=== PATIENT | female | born 2000 | race Caucasian/White ===

== ENCOUNTER 2023-10-09 08:00 | Outpatient (CLI) | payer OTHER ==
[2023-10-09 22:38] LABS: CHLAMYDIA TRACHOMATIS DNA NEGATIVE (NEGATIVE); NEISSERIA GONORRHOEAE DNA NEGATIVE (NEGATIVE)
[2023-10-09 23:37] LABS: BACTERIAL VAGINOSIS DNA NEGATIVE (NEGATIVE); CANDIDA KRUSEI DNA NEGATIVE (NEGATIVE); TRICHOMONAS VAGINALIS DNA NEGATIVE (NEGATIVE)
[2023-10-09 23:38] LABS: CANDIDA GLABRATA DNA NEGATIVE (NEGATIVE); CANDIDA GROUP DNA NEGATIVE (NEGATIVE)
== END 2023-10-09 23:59 | disposition home or self-care (01) ==
LOC: LAB.N 08:00
PROVIDERS: ATTEND Physician Assistant Medical
DX: N89.8 Other specified noninflammatory disorders of vagina (principal)
CPT/HCPCS: 81514; 87255; 87491; 87529; 87591; 87661

== ENCOUNTER 2023-10-22 15:35 | Emergency (ER) | payer OTHER ==
--- NOTE | 2023-10-22 16:09 | ED Physician Documentation ---
PD HPI CHEST PAIN - Stated complaint Stated Complaint: CP - Chief complaint Chief Complaint: Cardiac - History obtained from History obtained from: Patient - History of Present Illness Timing - onset: Today (she has been feeling surges/beats in her chest periodically this morning into afternoon. Initially 2-3 per minute but now about every 5-10 minutes or so. Has had feeling of lightheaded and some dyspnea, mild nauseea for 2-3 days. Does not feeling lightheaded with the palpitations per se.) Timing - details: Abrupt onset (palpitations just this morning. Had feeling of lightheaded at times undulating over past 2-3 days.) Quality: Other (suger/thump feeling in chest periodically, otherwise feeling okay.) Associated symptoms: Palpitations Recently seen: Not recently seen (was to get refill of her Wellbutrin but it was not going through so has been without it for a week and was attributing lig htheaded, nausea feeling to that.) Review of Systems Respiratory: denies: Dyspnea (denies exertional dyspnea, chest pain, near syncope nor palpitations with exercise. She does work out regularly.) GI: denies: Vomiting, Diarrhea Neurologic: denies: Near syncope, Syncope PD PAST MEDICAL HISTORY - Past Medical History Past Medical History: Yes Cardiovascular: None Respiratory: None Neuro: None Endocrine/Autoimmune: None GI: None WALL AND FLOOR TILER: None : None HEENT: None Psych: Depression, Anxiety Musculoskeletal: None Derm: None - Past Surgical History Past Surgical History: Yes Ortho: Other - Present Medications Home Medications: Ambulatory Orders Medication Instructions Recorded Confirmed Magnesium Oxide [Mag Ox] 400 mg PO DAILY #30 tablet 10/22/23 Potassium Chloride 20 meq PO DAILY #7 tab 10/22/23 buPROPion HCL [Bupropion Xl] 150 mg ORAL DAILY 10/22/23 10/22/23 - Allergies Allergies/Adverse Reactions: Allergies Allergy/AdvReac Type Severity Reaction Status Date / Time No Known Drug Allergies Allergy Verified 10/22/23 15:51 - Social History Does the pt smoke?: No Does the pt drink ETOH?: No Does the pt have substance abuse?: No - Immunizations Immunizations are current?: Yes PD ED PE NORMAL - Vitals Vital signs reviewed: Yes - General General: Alert and oriented X 3, No acute distress, Well developed/nourished - Neck Neck: Supple, no meningeal sign, No adenopathy - Cardiac Cardiac: RRR, No murmur, No rub - Respiratory Respiratory: No respiratory distress, Clear bilaterally - Abdomen Abdomen: Soft, Non tender - Derm Derm: Normal color, Warm and dry - Extremities Extremities: Normal ROM s pain, No edema, No calf tenderness / cord - Neuro Neuro: Alert and oriented X 3, No motor deficit, Normal speech Results - Vitals Vitals: Vital Signs - 24 hr 10/22/23 10/22/23 15:54 18:22 Temperature 36.7 C Heart Rate 72 81 Respiratory 16 16 Rate Blood Pressure 135/74 H 126/80 O2 Saturation 100 98 Oxygen O2 Source Room air - EKG (time done) 16:01 EKG releavant findings:: EKG personally interpreted by author of this note. Relevant findings are: Rate: Rate (enter#) (75) Rhythm: NSR [place]: Normal Intervals: Other (short FL; no delt waves noted.) QRS: Normal Ischemia: Normal ST segments. No: ST elevation c/w ischemia, ST depression - Labs Labs: Laboratory Tests 10/22/23 10/22/23 16:32 16:32 WBC 8.7 RBC 4.75 Hgb 13.9 Hct 42.9 MCV 90.3 MCH 29.3 MCHC 32.4 RDW 12.4 Plt Count 298 MPV 11.0 H Neut # (Auto) 6.1 Lymph # (Auto) 2.0 [place] # (Auto) 0.6 Eos # (Auto) 0.0 Baso # (Auto) 0.0 Absolute Nucleated RBC 0.00 Nucleated RBC % 0.0 Sodium 136 Potassium 3.8 Chloride 103 Carbon Dioxide 25 Anion Gap 8.0 BUN 8 Creatinine 0.7 Estimated GFR (MDRD) 106 Glucose 94 Calcium 10.0 Magnesium 1.6 L Total Bilirubin 0.7 AST 11 ALT 10 Alkaline Phosphatase 31 L Total Protein 7.1 Albumin 4.4 Globulin 2.7 Albumin/Globulin Ratio 1.6 Lipase 11 TSH 1.38 Serum HCG, Qual NEGATIVE PD Medical Decision Making - ED course Complexity details: reviewed results (She does have PVCs intermittent in ER, and states she had had the feeelings while here. Did not time it exactly as the PVCs did not trigger alarms/etc. No other ectopy nor abn rhythm while here, so presume just PVCs causing symptoms. Has low electrolytes, likely contributing. Not much caffeine. ), considered differential (having intermittent surges/beats in her chest. No dyspnea, lightheadedness nor feeling of sustained irregularlity. ), d/w patient Reviewed Lab Results: Her ECG does have short FL. Appears to be having just PVCs by description and on monitor here in ER, and has not had any exertional dyspnea, pain, near syncope, etc (nor at other random times), so does not sound like any SVT/atrial fib episodes. Consider her PCP to have her a Ziopatch/Holter type device for week or two to ensure no other rhythm disturbances as short FL could correlate with LGL/WPW etc. Her ECG, other than short FL, does not have any delta waves, though does not exclude accessory pathway disorders. Most likely would have had some experiences of SVT by this age though. I don't think the PVCs relate to lack of the Welbutrin, but some feeling of lightheaded and nausea could, though supposedly there isn't a wellbutrin discontinuation syndrome since SNRI and not SSRI, but articles do suggest it being tapered. Departure - Departure Disposition: 01 Home, Self Care Clinical Impression: PVCs (premature ventricular contractions), Shortened FL interval, Heart palpitations, Hypomagnesemia Condition: Stable Record reviewed to determine appropriate education?: Yes Instructions: ED Palpitations Follow-Up: [facility] [Provider Group] Prescriptions: Magnesium Oxide [Mag Ox] 400 mg PO DAILY #30 tablet Potassium Chloride 20 meq PO DAILY #7 tab Comments: He did have some extra beats here while on the monitor in the ER. These are extra ventricular beats called PVCs and are typically benign. Your electrolytes of magnesium was low and your potassium was in the low end of normal. These can allow for more easy occurrence of the PVCs. I would suggest some supplements of the magnesium and potassium for the next week to 10 days. Stay well-hydrated otherwise. I do not believe this would be caused by the stopping of the bupropion by because of running out of the prescription. Some feeling of little foggy or lightheaded or such certainly could be. We did give you a dose of your bupropion here. Hopefully your refill will be available tomorrow the next. Is in your prescription for the magnesium and potassium to your preferred pharmacy. Normal activity is fine. Your EKG does have likely variation of normal with a short FL interval. Sometimes this can predispose to other abnormal heart rhythms but it does not sound like you have had those in the past. This likely does not need any particular attention but at this point to be aware of it. Forms: PCP List Discharge Date/Time: 10/22/23 18:21
[2023-10-22] MEDS: buPROPion XL 150 MG TABLET PO STA (16:38)
[2023-10-22 16:44] LABS: BASOPHILS % (AUTO) 0.5 %; EOSINOPHILS % (AUTO) 0.2 %; HCT - HEMATOCRIT 42.9 % (37.0-47.0); HGB - HEMOGLOBIN 13.9 g/dL (12.0-16.0); LYMPHOCYTES % (AUTO) 22.4 %; MEAN CORPUSCULAR HEMOGLOBIN 29.3 pg (27.0-31.0); MEAN CORPUSCULAR HGB CONC 32.4 g/dL (32.0-36.0); MEAN CORPUSCULAR VOLUME 90.3 fL (81.0-99.0); MONOCYTES # (AUTO) 0.6 10^3/uL (0.0-1.0); MONOCYTES % (AUTO) 7.2 %; NEUTROPHILS # (AUTO) 6.1 10^3/uL (1.5-6.6); NEUTROPHILS % (AUTO) 69.5 %; PLT - PLATELET COUNT 298 10^3/uL (130-450); RED BLOOD COUNT 4.75 10^6/uL (4.20-5.40); RED CELL DISTRIBUTION WIDTH 12.4 % (12.0-15.0); WHITE BLOOD COUNT 8.7 x10^3/uL (4.8-10.8)
[2023-10-22 16:53] LABS: ALBUMIN 4.4 g/dL (3.2-5.5); ALBUMIN/GLOBULIN RATIO 1.6 (1.0-2.2); ALKALINE PHOSPHATASE 31 IU/L (42-121); ALT ALANINE AMINOTRANSFERASE 10 IU/L (10-60); AST ASPARTATE AMINOTRANSFERASE 11 IU/L (10-42); BILIRUBIN,TOTAL 0.7 mg/dL (0.2-1.0); BUN - BLOOD UREA NITROGEN 8 mg/dL (6-20); CARBON DIOXIDE - CO2 25 mmol/L (21-32); CHLORIDE 103 mmol/L (101-111); CREATININE 0.7 mg/dL (0.6-1.3); GFR - MDRD 106 (>89); GLUCOSE 94 mg/dL (74-104); LIPASE 11 U/L (11-82); MAGNESIUM 1.6 mg/dL (1.7-2.3); POTASSIUM 3.8 mmol/L (3.5-4.5); SODIUM 136 mmol/L (135-145); TOTAL PROTEIN 7.1 g/dL (6.4-8.9)
[2023-10-22 16:59] LABS: HCG,QUALITATIVE BLOOD NEGATIVE
[2023-10-22 17:08] LABS: THYROID STIMULATING HORMONE 1.38 uIU/mL (0.34-5.60)
[2023-10-22] MEDS: POTASSIUM BICARB 25 MEQ TABLET PO STA (17:40)
[2023-10-22] MEDS: MAGNESIUM OXIDE 400 MG TABLET PO STA (17:40)
[2023-10-22 18:31] VITALS: BP 126/80; O2SAT 98
== END 2023-10-22 18:21 | disposition home or self-care (01) ==
LOC: ED 15:35
DX: I49.3 Ventricular premature depolarization (principal); E83.42 Hypomagnesemia
CPT/HCPCS: 36415; 80053; 83690; 83735; 84443; 84703; 85025; 93005; 99284; A9270